=== PATIENT | male | born 1960 | race Caucasian/White ===

== ENCOUNTER 2020-11-28 08:44 | Emergency (ER) | payer BC, OTHER ==
[~2020-11-28] VITALS: Ht 170.2 cm; Wt 71.1 kg
--- NOTE | 2020-11-28 08:54 | NUR ---
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 advised to be NPO
[2020-11-28] MEDS ORDERED: LIDOCAINE-MPF 1%, 5ML ONE (09:24)
--- NOTE | 2020-11-28 09:35 | NUR ---
PT TO ROOM 23 W/ C/O L BUTTOCKS ABSCESS STARTED 5 DAYS AGO. STATES HE WENT TO SEE PCP AND WAS PLACED ON ABX X 4 DAYS W/O RELIEF. PT RESTING ON GURNEY. NADN. MONITORS APPLIED. VSS. WARM BLANKET PROVIDED. CALL LIGHT IN REACH.
[2020-11-28] MEDS ORDERED: LIDOCAINE 1%, 10ML INFIL ONE (10:00)
[2020-11-28 10:42] VITALS: BP 125/67
--- NOTE | 2020-11-28 10:42 | NUR ---
PT RESTING ON ROMINA. ANITRA. VSS. AWARE OF POC FOR DC. EDUCATED ON WOUND CARE FOR BUTTOCKS. PROVIDED W/ WOUND CARE SUPPLIES.
== END 2020-11-28 10:57 | disposition home or self-care (01) ==
LOC: ED 10:54
DX: K61.0 Anal abscess (principal)
CPT/HCPCS: 46050; 99284